=== PATIENT | male | born 1995 | race Two or more races ===

== ENCOUNTER 2024-02-28 18:16 | Inpatient (IN) | payer OTHER ==
[2024-02-28 18:39] VITALS: BMI 23.8
[2024-02-28] MEDS ORDERED: guaiFENesin 600 MG TABLET.ER (FP) PO PRN (19:28)
[2024-02-28] MEDS ORDERED: LOPERAMIDE HCL 2 MG CAPSULE PO PRN (19:28)
[2024-02-28] MEDS ORDERED: MAGNESIUM HYDROX 2400MG/30ML ORAL SUSPENSION 30 ML CUP PO PRN (19:28)
[2024-02-28] MEDS ORDERED: METHOCARBAMOL 500 MG TABLET PO PRN (19:28)
[2024-02-28] MEDS ORDERED: BISMUTH SUBSALICYLATE 524 MG/30 ML PO PRN (19:28)
[2024-02-28] MEDS ORDERED: MAG HYDROX/AL HYDROX/SIMETH 30 ML UNIT-DOSE CUP PO PRN (19:28)
[2024-02-28] MEDS ORDERED: ONDANSETRON *ODT* 4 MG TABLET SL PRN (19:28)
[2024-02-28] MEDS ORDERED: POLYETHYLENE GLYCOL (HEALTHYLAX) 3350 17 GM PACKET PO PRN (19:28)
[2024-02-28] MEDS ORDERED: BENZONATATE 200 MG CAPSULE PO PRN (19:28)
[2024-02-28] MEDS ORDERED: ACETAMINOPHEN 325 MG TABLET (FP) PO PRN (19:28)
[2024-02-28] MEDS ORDERED: NALOXONE HCL 0.4 MG/ML VIAL IM PRN (19:28)
[2024-02-28] MEDS ORDERED: chlordiazePOXIDE HCL 25 MG CAPSULE PO PRN (19:28)
[2024-02-28] MEDS ORDERED: IBUPROFEN 400 MG TABLET (FP) PO PRN (19:28)
[2024-02-28] MEDS ORDERED: NALOXONE (NARCAN) HCL 4 MG/0.1 ML SPRAY NS PRN (19:28)
[2024-02-28] MEDS ORDERED: DICYCLOMINE HCL 10 MG CAPSULE PO PRN (19:28)
[2024-02-28] MEDS ORDERED: hydrOXYzine PAMOATE 25 MG CAPSULE (FP) PO PRN (19:28)
[2024-02-28] MEDS ORDERED: LIDOCAINE VISCOUS 2% ORAL/TOP 15 ML UNIT-DOSE CUP MM PRN (19:37)
[2024-02-28] MEDS: BENZOCAINE/MENTHOL (CHLORASEPTIC ) LOZENGE MM PRN (21:01)
[2024-02-28] MEDS: chlordiazePOXIDE HCL 25 MG CAPSULE PO SCH (22:32)
[2024-02-28] MEDS: MELATONIN 5 MG TABLETS PO SCH (22:33)
[2024-02-28] MEDS: THIAMINE 100 MG TABLET PO SCH (22:33)
[2024-02-29] MEDS: IBUPROFEN 600 MG TABLET (FP) PO PRN (05:20)
[2024-02-29 06:31] VITALS: BP 116/70; PULSE 88; RESP 16; TEMP 97.8
[2024-02-29] MEDS: PRENATAL VITAMINS W/ FOLIC ACID TABLET (FP) PO SCH (09:07)
[2024-02-29 12:23] LABS: HEMATOCRIT 39.5 % (35.4-49); HEMOGLOBIN 13.4 GM/dL (11.7-16.9); MCH 32.2 pg (25.7-33.7); MCHC 33.9 g/dl (32.0-35.9); MEAN CELL VOLUME 94.9 fl (80-96); PLATELET COUNT 255 10^3/uL (134-434); RBC 4.16 M/mm3 (4.00-5.60); RDW 13.6 % (11.9-15.9); WHITE BLOOD COUNT 11.5 K/mm3 (4.0-10.0)
[2024-02-29 12:27] LABS: CHLORIDE 104 mmol/L (98-107); POTASSIUM 3.9 mmol/L (3.5-5.1); SODIUM 138 mmol/L (136-145)
[2024-02-29 12:36] LABS: CALCIUM 9.4 mg/dL (8.5-10.1)
[2024-02-29 12:37] LABS: ALBUMIN 3.7 g/dl (3.4-5.0); ANION GAP 6 mmol/L (4-13); BLOOD UREA NITROGEN 11.5 mg/dL (7-18); CO2 28 mmol/L (21-32); GLUCOSE,RANDOM 105 mg/dL (74-106)
[2024-02-29 12:38] LABS: CREATININE 0.9 mg/dL (0.55-1.3); SGPT/ALT 23 U/L (13-61)
[2024-02-29 12:39] LABS: ALK PHOS 106 U/L (45-117)
[2024-02-29 12:40] LABS: SGOT/AST 14 U/L (15-37); TOT PROT 6.6 g/dl (6.4-8.2)
[2024-03-01] MEDS ORDERED: chlordiazePOXIDE HCL 25 MG CAPSULE PO SCH (05:00)
[2024-03-02] MEDS ORDERED: chlordiazePOXIDE HCL 10 MG CAPSULE PO PRN
[2024-03-02] MEDS ORDERED: chlordiazePOXIDE HCL 10 MG CAPSULE PO SCH (05:00)
[2024-03-03] MEDS ORDERED: chlordiazePOXIDE HCL 10 MG CAPSULE PO SCH (05:00)
[2024-03-04] MEDS ORDERED: chlordiazePOXIDE HCL 10 MG CAPSULE PO ONE (05:00)
== END 2024-02-29 09:02 | disposition left against medical advice (07) | DRG 770 ==
LOC: YASAS 18:16 → Y3N 19:40
PROVIDERS: ADMIT Allergy & Immunology; ATTEND Surgery
PROC: HZ2ZZZZ Detoxification Services for Substance Abuse Treatment (ICD-10-PCS; principal; 2024-02-28)
DX: F10.230 Alcohol dependence with withdrawal, uncomplicated (principal); F12.10 Cannabis abuse, uncomplicated; F41.8 Other specified anxiety disorders; Z87.19 Personal history of other diseases of the digestive system; Z86.69 Personal history of other diseases of the nervous system and sense organs
CPT/HCPCS: 36415; 80053; 80305; 80307; 85027; 86780; 93005; 93010